=== PATIENT | male | born 1965 | race Caucasian/White ===

== ENCOUNTER 2016-11-23 19:28 | Emergency (ER) | payer BC, OTHER ==
[2016-11-23] MEDS ORDERED: methylPREDNISolone Sodium Succinate 125 MG/2 ML SDV IVPUSH ONE (19:37)
--- NOTE | 2016-11-23 19:41 | EDM.PDOC ---
ED HPI Allergic Reaction - General Chief Complaint: Allergic Reaction Stated Complaint: TOUNGE/THROAT SWELLING Time Seen by Provider: 11/23/16 19:38 Source of Information: Reports: Patient, Family () History Limitations: Reports: No limitations - History of Present Illness INITIAL COMMENTS - FREE TEXT/NARRATIVE: 51 yo white male c/o tongue swelling X 2-3 hours and does not recall what caused it. No New Food. Pt. is smoker Symptom Onset Date: 11/23/16 Symptom Onset Time: 17:00 Timing/Duration: Reports: Hour(s): Location, Skin: Reports: other (tongue) Associated features: Reports: swelling (tongue) Known identified source: no Place of Occurrence: home Sick Contact: no Associated Symptoms: Reports: no other symptoms Similar symptoms previously: no - Related Data Allergies/ADRs: Allergies Allergy/AdvReac Type Severity Reaction Status Date / Time No Known Allergies Allergy Verified 11/23/16 19:44 Home Meds: Home Meds Albuterol [Ventolin HFA] 2 puff INH BID 09/01/13 [History] Simvastatin [Zocor] 20 mg PO DAILY 09/01/13 [History] Aspirin [Halfprin] 81 mg PO BRK 11/23/16 [History] Lisinopril 10 mg PO DAILY 11/23/16 [History] Social & Family History - Tobacco Use Years of Tobacco use: 35 Second Hand Smoke Exposure: Yes - Alcohol Use Days Per Week of Alcohol Use: 7 Number of Drinks Per Day: 5 Total Drinks Per Week: 35 - Recreational Drug Use Recreational Drug Use: No ED ROS ALLERGIC REACTION - Review of Systems Review Of Systems: See Below Constitutional: Reports: no symptoms HEENT: Reports: Other (tongue swelling) Respiratory: Reports: no symptoms Cardiovascular: Reports: No symptoms Endocrine: Reports: no symptoms GI/Abdominal: Reports: No symptoms Musculoskeletal: Reports: no symptoms Skin: Reports: no symptoms Neurological: Reports: no symptoms Psychiatric: Reports: No symptoms Hematologic/Lymphatic: Reports: no symptoms Immunologic: Reports: no symptoms ED EXAM GENERAL NO PERIP PULSE - Physical Exam Exam: See Below Exam Limited By: No limitations General Appearance: alert, WD/WN, no apparent distress Eye Exam: bilateral eye: PERRL Ears: normal external exam Nose: normal inspection Throat/Mouth: Normal inspection, Other (tongue swelling ) Neck: normal inspection Respiratory/Chest: no respiratory distress, rhonchi Cardiovascular: normal peripheral pulses, regular rate, rhythm GI/Abdominal: normal bowel sounds Back Exam: normal inspection Extremities: normal inspection, normal range of motion Neurological: alert, oriented, CN II-XII intact Psychiatric: normal affect Skin Exam: Warm, No rash Lymphatic: no adenopathy Course - Vital Signs Last Recorded V/S: Last Vital Signs Temp 37.4 C 11/23/16 20:07 Pulse 86 11/23/16 20:07 Resp 16 11/23/16 20:07 BP 143/75 H 11/23/16 20:07 Pulse Ox 92 L 11/23/16 20:07 - Orders/Labs/Meds Orders: Active Orders 24 hr Category Date Time Status Sodium Chloride 0.9% [Normal Saline] 1,000 ml Med 11/23/16 19:45 Active IV ASDIRECTED Medication Orders Sodium Chloride (Normal Saline) 1,000 mls @ 125 mls/hr IV ASDIRECTED VANESSA Last Admin: 11/23/16 19:42 Dose: 125 mls/hr Meds: Medications Generic Name Dose Route Start Last Admin Trade Name Freq PRN Reason Stop Dose Admin Sodium Chloride 1,000 mls @ 125 mls/hr 11/23/16 19:45 11/23/16 19:42 Normal Saline IV 125 mls/hr ASDIRECTED VANESSA Administration Discontinued Medications Generic Name Dose Route Start Last Admin Trade Name Freq PRN Reason Stop Dose Admin Diphenhydramine HCl 25 mg 11/23/16 19:44 11/23/16 19:47 Benadryl IVPUSH 11/23/16 19:45 25 mg ONETIME ONE Administration Methylprednisolone Sodium Succinate 125 mg 11/23/16 19:37 11/23/16 19:43 Solu-Medrol IVPUSH 11/23/16 19:38 125 mg ONETIME ONE Administration Departure - Departure Time of Disposition: 21:46 Disposition: Home, Self-Care 01 Condition: good Clinical Impression: Allergic reaction Qualifiers: Encounter type: initial encounter Qualified Code(s): T78.40XA - Allergy, unspecified, initial encounter Forms: ED Department Discharge Additional Instructions: Rest Suck on ice chips Use own the Benadryl 25mg QID F/U w/ PCP for Allergy test - My Orders Last 24 Hours: My Active Orders 11/23/16 19:45 Sodium Chloride 0.9% [Normal Saline] 1,000 ml IV ASDIRECTED - Assessment/Plan Last 24 Hours: My Active Orders 11/23/16 19:45 Sodium Chloride 0.9% [Normal Saline] 1,000 ml IV ASDIRECTED
[2016-11-23] MEDS ORDERED: diphenhydrAMINE 50 MG/ML SDV IVPUSH ONE (19:44)
[2016-11-23] MEDS ORDERED: Sodium Chloride 0.9% 1,000 ML IV SCH (19:45)
[2016-11-23 21:48] VITALS: BP 133/67
== END 2016-11-23 22:10 | disposition home or self-care (01) ==
LOC: DL.ED 19:28
DX: T78.40XA Allergy, unspecified, initial encounter (principal); R22.0 Localized swelling, mass and lump, head; Z79.82 Long term (current) use of aspirin
CPT/HCPCS: 96361; 96374; 96375; 99283; J1200; J2930; J7030; 99284

== ENCOUNTER 2017-04-25 16:00 | Emergency (ER) | payer MEDICAID, OTHER ==
[2017-04-25] MEDS ORDERED: Sodium Chloride 0.9% 1,000 ML IV ONE (16:25)
[2017-04-25] MEDS ORDERED: methylPREDNISolone Sodium Succinate 125 MG/2 ML SDV IVPUSH ONE ×2 (16:26→20:07)
--- NOTE | 2017-04-25 16:33 | EDM.PDOC ---
<Gold Galan - Last Filed: 04/25/17 18:48> ED HPI GENERAL MEDICAL PROBLEM - General Chief Complaint: Allergic Reaction Stated Complaint: BY AMBULANCE Time Seen by Provider: 04/25/17 16:27 Source of Information: Reports: Patient, EMS, Family () - History of Present Illness INITIAL COMMENTS - FREE TEXT/NARRATIVE: 52 yo white male brought by ambulance for possible allergic reaction from " Wine Cooler Ice and .[place] Ice" beer. Pt. had facial swelling and lip swelling yesterday and resolved with benadryl. Today patient drank [place] [employer] and developed swelling to his uvula. No SOB and No Skin Rash and No itching. Onset Date: 04/24/17 Onset Time: 13:00 Duration: Day(s): Location: Reports: Face, Other (throat) Severity: Moderate Improves with: Reports: Medication (Benadryl) Context: Reports: Other (possible allergy to Wine Cooler and Beer with the ICE brand) Associated Symptoms: Reports: No Other Symptoms - Related Data Allergies Allergy/AdvReac Type Severity Reaction Status Date / Time No Known Allergies Allergy Verified 11/23/16 19:44 Home Meds: Home Meds Albuterol [Ventolin HFA] 2 puff INH BID 09/01/13 [History] Simvastatin [Zocor] 20 mg PO DAILY 09/01/13 [History] Aspirin [Halfprin] 81 mg PO BRK 11/23/16 [History] Lisinopril 10 mg PO DAILY 11/23/16 [History] Tiotropium [Spiriva HandiHaler] 1 tab INH DAILY 04/25/17 [History] Past Medical History HEENT History: Reports: Sinusitis Cardiovascular History: Reports: Aneurysm, Blood Clots/VTE/DVT, CAD, High Cholesterol, Hypertension, [place], Stents, Other (See Below) Other Cardiovascular History: aneurysm repair. 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 Respiratory History: Reports: Asthma, Bronchitis, Recurrent, COPD, Intubation, Previous Musculoskeletal History: Reports: Fracture Other Musculoskeletal History: arm Neurological History: Reports: Brain Injury, Concussion - Past Surgical History Cardiovascular Surgical History: Reports: Aneurysm, Coronary Artery Stent, Other (See Below) Social & Family History - Family History Family Medical History: Noncontributory - Tobacco Use Smoking Status *Q: Current Every Day Smoker Years of Tobacco use: 35 Packs/Tins Daily: 1 Second Hand Smoke Exposure: Yes - Caffeine Use Caffeine Use: Reports: Coffee Other Caffeine Use: 2 cups coffee / day - Alcohol Use Days Per Week of Alcohol Use: 7 Number of Drinks Per Day: 5 Total Drinks Per Week: 35 - Recreational Drug Use Recreational Drug Use: No ED ROS ALLERGIC REACTION - Review of Systems Review Of Systems: See Below Constitutional: Reports: No Symptoms HEENT: Reports: Throat Swelling Respiratory: Reports: No Symptoms Cardiovascular: Reports: No Symptoms Endocrine: Reports: No Symptoms GI/Abdominal: Reports: No Symptoms : Reports: No Symptoms Musculoskeletal: Reports: No Symptoms Skin: Reports: No Symptoms Neurological: Reports: No Symptoms Psychiatric: Reports: No Symptoms Hematologic/Lymphatic: Reports: No Symptoms Immunologic: Reports: No Symptoms ED EXAM GENERAL NO PERIP PULSE - Physical Exam Exam: See Below Exam Limited By: Other (Patient is intoxicated) General Appearance: Alert, No Apparent Distress Eye Exam: Bilateral Eye: PERRL Ears: Normal External Exam Nose: Normal Inspection Throat/Mouth: Normal Inspection, No Airway Compromise, Other (edematous uvula) Neck: Normal Inspection, Supple Respiratory/Chest: No Respiratory Distress, Lungs Clear Cardiovascular: Normal Peripheral Pulses, Regular Rate, Rhythm GI/Abdominal: Normal Bowel Sounds, Soft Back Exam: Normal Inspection Extremities: Normal Inspection, Normal Range of Motion Neurological: Alert, Oriented Psychiatric: Normal Affect Skin Exam: Warm Lymphatic: No Adenopathy Course - Vital Signs Last Recorded V/S: Last Vital Signs Temp 36.9 C 04/25/17 20:03 Pulse 104 H 04/25/17 17:04 Resp 22 H 04/25/17 20:03 BP 136/89 04/25/17 20:03 Pulse Ox 100 04/25/17 20:03 - Orders/Labs/Meds Orders: Active Orders 24 hr Category Date Time Status RT Aerosol Therapy [RC] ASDIRECTED Care 04/25/17 19:53 Active Cervical Spine wo Cont [CT] Urgent Exams 04/25/17 21:11 Ordered Chest 2V [CR] Urgent Exams 04/25/17 20:06 Taken Labs: Laboratory Tests 04/25/17 04/25/17 04/25/17 Range/Units 16:34 16:36 16:36 WBC 12.0 H (5.0-10.0) 10^3/uL RBC 4.85 (4.6-6.2) 10^6/uL Hgb 16.1 (14.0-18.0) g/dL Hct 44.9 (40.0-54.0) % MCV 92.6 (80-100) fL MCH 33.2 (27.0-34.0) pg MCHC 35.9 H (33.0-35.0) g/dL Plt Count 154 (150-450) 10^3/uL Neut % (Auto) 67.1 (42.2-75.2) % Lymph % (Auto) 18.7 L (20.5-50.1) % [place] % (Auto) 12.6 H (2-8) % Eos % (Auto) 1.1 (1.0-3.0) % Baso % (Auto) 0.5 (0.0-1.0) % Sodium 134 L (135-145) mmol/L Potassium 4.7 (3.6-5.0) mmol/L Chloride 94 L (101-111) mmol/L Carbon Dioxide 19.0 L (21.0-31.0) mmol/L Anion Gap 25.7 BUN 10 (7-18) mg/dL Creatinine 0.7 (0.6-1.3) mg/dL Est Cr Clr Drug Dosing TNP Estimated GFR (MDRD) > 60 BUN/Creatinine Ratio 14.28 Glucose 72 L (74-105) mg/dL Calcium 9.5 (8.4-10.2) mg/dl Total Bilirubin 0.6 (0.2-1.0) mg/dL AST 40 (10-42) IU/L ALT 25 (10-60) IU/L Alkaline Phosphatase 92 (42-121) IU/L Total Protein 8.3 H (6.7-8.2) g/dl Albumin 4.4 (3.2-5.5) g/dl Globulin 3.9 Albumin/Globulin Ratio 1.13 Urine Color Yellow (YELLOW) Urine Appearance Clear (CLEAR) Urine pH 5.5 (5.0-9.0) Ur Specific [place] 1.015 (1.005-1.030) Urine Protein Negative (NEGATIVE) Urine Glucose (UA) Negative (NEGATIVE) Urine Ketones 15 H (NEGATIVE) Urine Occult Blood Negative (NEGATIVE) Urine Nitrite Negative (NEGATIVE) Urine Bilirubin Negative (NEGATIVE) Urine Urobilinogen 0.2 (0.2-1.0) mg/dL Ur Leukocyte Esterase Negative (NEGATIVE) Urine RBC 0-5 /HPF Urine WBC 0-5 (0-5/HPF) /HPF Ur Epithelial Cells Few /HPF Amorphous Sediment Few (0/HPF) /HPF Urine Bacteria Moderate H (0-FEW/HPF) /HPF Hyaline Casts Few H /LPF Urine Mucus Few H /LPF Ethyl Alcohol mg/dL 04/25/17 Range/Units 16:36 WBC (5.0-10.0) 10^3/uL RBC (4.6-6.2) 10^6/uL Hgb (14.0-18.0) g/dL Hct (40.0-54.0) % MCV (80-100) fL MCH (27.0-34.0) pg MCHC (33.0-35.0) g/dL Plt Count (150-450) 10^3/uL Neut % (Auto) (42.2-75.2) % Lymph % (Auto) (20.5-50.1) % [place] % (Auto) (2-8) % Eos % (Auto) (1.0-3.0) % Baso % (Auto) (0.0-1.0) % Sodium (135-145) mmol/L Potassium (3.6-5.0) mmol/L Chloride (101-111) mmol/L Carbon Dioxide (21.0-31.0) mmol/L Anion Gap BUN (7-18) mg/dL Creatinine (0.6-1.3) mg/dL Est Cr Clr Drug Dosing Estimated GFR (MDRD) BUN/Creatinine Ratio Glucose (74-105) mg/dL Calcium (8.4-10.2) mg/dl Total Bilirubin (0.2-1.0) mg/dL AST (10-42) IU/L ALT (10-60) IU/L Alkaline Phosphatase (42-121) IU/L Total Protein (6.7-8.2) g/dl Albumin (3.2-5.5) g/dl Globulin Albumin/Globulin Ratio Urine Color (YELLOW) Urine Appearance (CLEAR) Urine pH (5.0-9.0) Ur Specific [place] (1.005-1.030) Urine Protein (NEGATIVE) Urine Glucose (UA) (NEGATIVE) Urine Ketones (NEGATIVE) Urine Occult Blood (NEGATIVE) Urine Nitrite (NEGATIVE) Urine Bilirubin (NEGATIVE) Urine Urobilinogen (0.2-1.0) mg/dL Ur Leukocyte Esterase (NEGATIVE) Urine RBC /HPF Urine WBC (0-5/HPF) /HPF Ur Epithelial Cells /HPF Amorphous Sediment (0/HPF) /HPF Urine Bacteria (0-FEW/HPF) /HPF Hyaline Casts /LPF Urine Mucus /LPF Ethyl Alcohol 280 mg/dL Meds: Medications Discontinued Medications Generic Name Dose Route Start Last Admin Trade Name Freq PRN Reason Stop Dose Admin Diphenhydramine HCl 50 mg 04/25/17 18:28 04/25/17 18:42 Benadryl PO 04/25/17 18:29 50 mg ONETIME ONE Administration Diphenhydramine HCl 25 mg 04/25/17 20:07 04/25/17 20:18 Benadryl IVPUSH 04/25/17 20:08 25 mg ONETIME ONE Administration Sodium Chloride 1,000 mls @ 999 mls/hr 04/25/17 16:25 04/25/17 16:52 Normal Saline IV 04/25/17 17:25 999 mls/hr .BOLUS ONE Administration Methylprednisolone Sodium Succinate 125 mg 04/25/17 16:26 04/25/17 16:52 Solu-Medrol IVPUSH 04/25/17 16:27 125 mg ONETIME ONE Administration Methylprednisolone Sodium Succinate 125 mg 04/25/17 20:07 04/25/17 20:19 Solu-Medrol IVPUSH 04/25/17 20:08 125 mg ONETIME ONE Administration Racepinephrine 0.5 ml 04/25/17 19:53 04/25/17 19:59 S-2 2.25% NEB 04/25/17 19:54 0.5 ml ONETIME ONE Administration Departure - Departure Disposition: DC/Tfer to Acute Hospital 02 Clinical Impression: Dyspnea Qualifiers: Dyspnea type: other forms of dyspnea Qualified Code(s): R06.09 - Other forms of dyspnea - Discharge Information Forms: Interfacility Transfer EMTALA - My Orders Last 24 Hours: My Active Orders 04/25/17 19:53 RT Aerosol Therapy [RC] ASDIRECTED 04/25/17 20:06 Chest 2V [CR] Urgent 04/25/17 21:11 Cervical Spine wo Cont [CT] Urgent - Assessment/Plan Last 24 Hours: My Active Orders 04/25/17 19:53 RT Aerosol Therapy [RC] ASDIRECTED 04/25/17 20:06 Chest 2V [CR] Urgent 04/25/17 21:11 Cervical Spine wo Cont [CT] Urgent <Brian Jackson - Last Filed: 04/25/17 21:19> Course - Re-Assessments/Exams Free Text/Narrative Re-Assessment/Exam: 04/25/17 19:11 re-exam; s/p IV + Rx = minimally better 04/25/17 21:12 re-exam Pt states not better. case discussed with Dr Odell @ who kindly accepted pt. Departure - Departure Time of Disposition: 21:16 Condition: Fair
[2017-04-25 17:02] LABS: CHLORIDE,CL 94 mmol/L (101-111); SODIUM,NA 134 mmol/L (135-145)
[2017-04-25] MEDS ORDERED: diphenhydrAMINE 50 MG Cap PO ONE (18:28)
[2017-04-25] MEDS ORDERED: Racepinephrine 2.25% 0.5 ML Neb Soln NEB ONE (19:53)
[2017-04-25] MEDS ORDERED: diphenhydrAMINE 50 MG/ML SDV IVPUSH ONE (20:07)
[2017-04-25 21:26] VITALS: BP 129/82
== END 2017-04-25 21:42 ==
LOC: DL.ED 16:00
DX: R06.09 Other forms of dyspnea (principal); J45.909 Unspecified asthma, uncomplicated; J44.9 Chronic obstructive pulmonary disease, unspecified; F17.210 Nicotine dependence, cigarettes, uncomplicated; Z95.1 Presence of aortocoronary bypass graft; Z79.899 Other long term (current) drug therapy; Z79.82 Long term (current) use of aspirin
CPT/HCPCS: 36415; 70360; 71020; 80053; 81001; 85025; 96365; 96375; 96376; 99285; G0480; J1200; J2930; J7030; Q0163

== ENCOUNTER 2020-03-26 19:08 | Emergency (ER) | payer OTHER, MEDICAID ==
[2020-03-26 19:22] VITALS: BP 134/75; PULSE 93
--- NOTE | 2020-03-26 19:38 | CR ---
PROCEDURE INFORMATION: Exam: XR Chest, 2 Views Exam date and time: 03/26/2020 7:23 PM Age: 55 years old Clinical indication: Shortness of breath; Additional info: Short of breath TECHNIQUE: Imaging protocol: XR of the chest Views: 2 views. COMPARISON: CR Chest 2V 04/25/2017 8:09 PM FINDINGS: Lungs: Unremarkable. No consolidation. Pleural space: Unremarkable. No pleural effusion. No pneumothorax. Heart/Mediastinum: Unremarkable. No cardiomegaly. Previous descending thoracic aorta stent graft. Bones/joints: Unremarkable. IMPRESSION: 1. No acute lung infiltrates. 2. No pleural effusions. 3. No pneumothorax. 4. Descending thoracic aortic stent graft.
--- NOTE | 2020-03-26 19:43 | EDM.PDOC ---
ED HPI GENERAL MEDICAL PROBLEM - General Chief Complaint: Respiratory Problem Stated Complaint: FATIQUE Time Seen by Provider: 03/26/20 19:25 Source of Information: Reports: Patient History Limitations: Reports: No Limitations - History of Present Illness INITIAL COMMENTS - FREE TEXT/NARRATIVE: This 55 yo male patient reports to the ED with his due to fatigue. The patient reports he has been feeling well all day, but started to feel fatigued tonight after eating supper. The patient reports he has a history of a heart attack (when he was 41) and multiple stents. The patient also has a history of COPD, but continues to smoke. The patient denies any history of a cough, shortness of breath, nausea, vomiting or diarrhea. Onset: Today Duration: Hour(s):, Constant Location: Reports: Generalized Quality: Reports: Other Severity: Moderate Improves with: Reports: None Worsens with: Reports: None Context: Reports: Other Associated Symptoms: Reports: Shortness of Breath, Weakness (generalized fatigue) - Related Data Allergies Allergy/AdvReac Type Severity Reaction Status Date / Time ARLYN Inhibitors Allergy Airway Verified 03/26/20 19:14 Tightness morphine Allergy Hallucinati Verified 03/26/20 19:14 ons Home Meds: Home Meds Albuterol [Ventolin HFA] 2 puff INH BID 09/01/13 [History] Simvastatin [Zocor] 20 mg PO DAILY 09/01/13 [History] Aspirin [Halfprin] 81 mg PO BRK 11/23/16 [History] Tiotropium [Spiriva HandiHaler] 1 tab INH DAILY 04/25/17 [History] Gabapentin [Neurontin] 600 mg TID 04/22/19 [History] NIFEdipine [Nifedipine ER] 30 mg DAILY 04/22/19 [History] Clopidogrel [Plavix] 75 mg PO DAILY 03/26/20 [History] Past Medical History HEENT History: Reports: Sinusitis Other HEENT History: very bad teeth Cardiovascular History: Reports: Aneurysm, Blood Clots/VTE/DVT, CAD, High Cholesterol, Hypertension, [place], Stents, Other (See Below) Other Cardiovascular History: aneurysm repair. 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 Respiratory History: Reports: Asthma, Bronchitis, Recurrent, COPD, Intubation, Previous Musculoskeletal History: Reports: Fracture Other Musculoskeletal History: arm Neurological History: Reports: Brain Injury, Concussion Psychiatric History: Reports: Addiction - Past Surgical History Cardiovascular Surgical History: Reports: Aneurysm, Coronary Artery Stent, Other (See Below) GI Surgical History: Reports: Other (See Below) Other GI Surgeries/Procedures: exploratory laparotomy Social & Family History - Family History Family Medical History: Noncontributory - Tobacco Use Smoking Status *Q: Current Every Day Smoker Years of Tobacco use: 40 Packs/Tins Daily: 1 Second Hand Smoke Exposure: Yes - Caffeine Use Caffeine Use: Reports: Coffee Other Caffeine Use: 2 cups coffee / day - Recreational Drug Use Recreational Drug Use: No ED ROS GENERAL - Review of Systems Review Of Systems: Comprehensive ROS is negative, except as noted in HPI. ED EXAM, GENERAL - Physical Exam Exam: See Below Exam Limited By: No Limitations General Appearance: Alert, WD/WN, Moderate Distress Eye Exam: Bilateral Eye: EOMI, Normal Inspection, PERRL Ears: Normal External Exam, Normal Canal, Hearing Grossly Normal, Normal TMs Nose: Normal Inspection, Normal Mucosa, No Blood Throat/Mouth: Normal Inspection, Normal Lips, Normal Teeth, Normal Gums, Normal Oropharynx, Normal Voice, No Airway Compromise Head: Atraumatic, Normocephalic Neck: Normal Inspection, Supple, Non-Tender, Full Range of Motion Respiratory/Chest: No Respiratory Distress, No Accessory Muscle Use, Chest Non- Tender, Decreased Breath Sounds Cardiovascular: Normal Peripheral Pulses, Regular Rate, Rhythm, No Edema, No Gallop, No JVD, No Murmur, No Rub GI/Abdominal: Normal Bowel Sounds, Soft, Non-Tender, No Organomegaly, No Distention, No Abnormal Bruit, No Mass (Male) Exam: Deferred Rectal (Males) Exam: Deferred Back Exam: Normal Inspection, Full Range of Motion, NT Extremities: Normal Inspection, Normal Range of Motion, Non-Tender, Normal Capillary Refill, No Pedal Edema Neurological: Alert, Oriented, CN II-XII Intact, Normal Cognition, Normal Gait, Normal Reflexes, No Motor/Sensory Deficits Psychiatric: Normal Affect, Normal Mood Skin Exam: Other (multiple bruises to upper extremities) Lymphatic: No Adenopathy Course - Vital Signs Last Recorded V/S: Last Vital Signs Temp 36.9 C 03/26/20 19:10 Pulse 93 03/26/20 19:21 Resp 18 03/26/20 19:21 BP 134/75 03/26/20 19:21 Pulse Ox 98 06/29/20 19:21 - Orders/Labs/Meds Orders: Active Orders 24 hr Category Date Time Status EKG Documentation Completion [RC] STAT Care 03/26/20 19:19 Ordered UA RFX KRIS AND CULT IF INDIC [URIN] Urgent Lab 03/26/20 19:19 Ordered cefTRIAXone [Rocephin] 1 gm Med 03/26/20 20:11 Ordered Sodium Chloride 0.9% [Normal Saline] 50 ml IV ONETIME Medication Orders Ceftriaxone Sodium 1 gm/ (Sodium Chloride) 50 mls @ 100 mls/hr IV ONETIME ONE Stop: 03/26/20 20:40 Labs: Laboratory Tests 03/26/20 03/26/20 Range/Units 19:17 19:17 WBC 4.2 L (5.0-10.0) 10^3/uL RBC 3.83 L (4.6-6.2) 10^6/uL Hgb 12.0 L D (14.0-18.0) g/dL Hct 35.9 L (40.0-54.0) % MCV 93.7 (80-100) fL MCH 31.3 (27.0-34.0) pg MCHC 33.4 (33.0-35.0) g/dL Plt Count 177 (150-450) 10^3/uL Neut % (Auto) 56.4 (42.2-75.2) % Lymph % (Auto) 29.8 (20.5-50.1) % [place] % (Auto) 9.5 H (2-8) % Eos % (Auto) 2.6 (1.0-3.0) % Baso % (Auto) 1.7 H (0.0-1.0) % Sodium 137 (136-145) mmol/L Potassium 3.6 (3.5-5.1) mmol/L Chloride 100 (98-107) mmol/L Carbon Dioxide 26 (21-32) mmol/L Anion Gap 14.6 H (7-13) mEq/L BUN 8 (7-18) mg/dL Creatinine 0.88 (0.70-1.30) mg/dL Est Cr Clr Drug Dosing 89.35 mL/min Estimated GFR (MDRD) > 60 BUN/Creatinine Ratio 9.1 (No establ ref range) Glucose 147 H (74-99) mg/dL Calcium 8.7 (8.5-10.1) mg/dL Total Bilirubin 0.3 (0.2-1.0) mg/dL AST 33 (15-37) U/L ALT 23 (16-63) U/L Alkaline Phosphatase 80 (46-116) U/L Troponin I < 0.017 (0.000-0.056) ng/mL Total Protein 7.6 (6.4-8.2) g/dL Albumin 3.5 (3.4-5.0) g/dL Globulin 4.1 Albumin/Globulin Ratio 0.9 Meds: Medications Generic Name Dose Route Start Last Admin Trade Name Freq PRN Reason Stop Dose Admin Ceftriaxone Sodium 1 gm/ 50 mls @ 100 mls/hr 03/26/20 20:11 Sodium Chloride IV 03/26/20 20:40 ONETIME ONE Discontinued Medications Generic Name Dose Route Start Last Admin Trade Name Freq PRN Reason Stop Dose Admin Ceftriaxone Sodium 1 gm 03/26/20 20:10 Rocephin IM 03/26/20 20:11 ONETIME ONE Methylprednisolone Sodium Succinate 40 mg 03/26/20 20:09 Solu-Medrol IVPUSH 03/26/20 20:10 ONETIME ONE Departure - Departure Time of Disposition: 20:15 Disposition: Home, Self-Care 01 Condition: Fair Clinical Impression: COPD with exacerbation - Discharge Information *PRESCRIPTION DRUG MONITORING PROGRAM REVIEWED*: Not Applicable *COPY OF PRESCRIPTION DRUG MONITORING REPORT IN PATIENT ENDER: Not Applicable Instructions: Chronic Obstructive Pulmonary Disease Exacerbation, [id number] Forms: ED Department Discharge Care Plan Goals: The patient was advised of the examination, lab, x-ray and EKG results during the visit. The patient was given in IV dose of SoluMedrol and IV Rocephin while in the ED. The patient was discharged with scripts for 1) Azithromycin (250 mg) #6 to take 2 by mouth on day 1 and 1 by mouth on days 2-5 and Prednisone (20 mg) #10 to take 2 by mouth daily. If the patient has any additional symptoms or concerns, the patient should either return to the emergency department or visit his primary care facility. Sepsis Event Note (ED) - Evaluation Sepsis Screening Result: No Definite Risk - Focused Exam Vital Signs: Vital Signs Temp Pulse Resp BP Pulse Ox 03/26/20 19:21 93 18 134/75 98 03/26/20 19:10 36.9 C 119 H 18 136/72 87 L - My Orders Last 24 Hours: My Active Orders 03/26/20 19:19 EKG Documentation Completion [RC] STAT UA RFX KRIS AND CULT IF INDIC [URIN] Urgent 03/26/20 20:11 cefTRIAXone [Rocephin] 1 gm Sodium Chloride 0.9% [Normal Saline] 50 ml IV ONETIME - Assessment/Plan Last 24 Hours: My Active Orders 03/26/20 19:19 EKG Documentation Completion [RC] STAT UA RFX KRIS AND CULT IF INDIC [URIN] Urgent 03/26/20 20:11 cefTRIAXone [Rocephin] 1 gm Sodium Chloride 0.9% [Normal Saline] 50 ml IV ONETIME
[2020-03-26 19:45] LABS: ANION GAP 14.6 mEq/L (7-13); CHLORIDE,CL 100 mmol/L (98-107); SODIUM,NA 137 mmol/L (136-145)
[2020-03-26] MEDS ORDERED: methylPREDNISolone Sodium Succinate 40 MG/1 ML SDV IVPUSH ONE (20:09)
[2020-03-26] MEDS ORDERED: cefTRIAXone 1 GM Vial IM ONE (20:10)
[2020-03-26] MEDS ORDERED: cefTRIAXone 1 GM in Sodium Chloride 0.9% 50 ML IV ONE (20:11)
== END 2020-03-26 21:02 | disposition home or self-care (01) ==
LOC: DL.ED 19:08
DX: J44.1 Chronic obstructive pulmonary disease with (acute) exacerbation (principal); I25.10 Atherosclerotic heart disease of native coronary artery without angina pectoris; E78.00 Pure hypercholesterolemia, unspecified; I10 Essential (primary) hypertension; I25.2 Old myocardial infarction; J44.9 Chronic obstructive pulmonary disease, unspecified; F17.210 Nicotine dependence, cigarettes, uncomplicated; Z88.8 Allergy status to other drugs, medicaments and biological substances; Z88.5 Allergy status to narcotic agent; Z79.82 Long term (current) use of aspirin; Z79.02 Long term (current) use of antithrombotics/antiplatelets; Z95.5 Presence of coronary angioplasty implant and graft; Z79.899 Other long term (current) drug therapy
CPT/HCPCS: 36415; 71046; 80053; 84484; 85025; 93005; 96365; 96375; 99284; 99285; J0696; J2920; J7050

== ENCOUNTER 2022-03-26 21:56 | Emergency (ER) | payer BC ==
[2022-03-26 22:00] VITALS: PULSE 106
== END 2022-03-26 22:05 | disposition left against medical advice (07) ==
LOC: DL.ED 21:56
DX: M79.672 Pain in left foot (principal); I25.10 Atherosclerotic heart disease of native coronary artery without angina pectoris; E78.00 Pure hypercholesterolemia, unspecified; I10 Essential (primary) hypertension; J44.9 Chronic obstructive pulmonary disease, unspecified; Z88.5 Allergy status to narcotic agent; Z88.8 Allergy status to other drugs, medicaments and biological substances; Z79.82 Long term (current) use of aspirin; Z79.899 Other long term (current) drug therapy; Z79.02 Long term (current) use of antithrombotics/antiplatelets
CPT/HCPCS: 99282; 99283

== ENCOUNTER 2023-01-29 22:19 | Emergency (ER) | payer OTHER ==
[2023-01-29] MEDS ORDERED: Sodium Chloride 0.9% 10 ML Syringe FLUSH PRN (22:51)
[2023-01-29 22:58] LABS: BASOPHILS PERCENT AUTO 0.7 % (0.0-1.0); EOSINOPHILS PERCENT AUTO 1.9 % (1.0-3.0); LYMPHOCYTES PERCENT AUTO 16.4 % (20.5-50.1); MEAN CORPUSCULAR HEMOGLOBIN 24.5 pg (27.0-34.0); MEAN CORPUSCULAR HGB CONC 30.4 g/dL (33.0-35.0); MEAN CORPUSCULAR VOLUME 80.5 fL (80-100); PLATELET COUNT,PLT 256 10^3/uL (150-450); RED BLOOD CELL COUNT 2.41 10^6/uL (4.6-6.2); WHITE BLOOD CELL COUNT,WBC 7.5 10^3/uL (5.0-10.0)
[2023-01-29 23:02] LABS: HEMATOCRIT 19.4 % (40.0-54.0); HEMOGLOBIN 5.9 g/dL (14.0-18.0)
[2023-01-29 23:19] LABS: B-TYPE NATRIURETIC PEPTIDE,BNP 95 pg/ml (0-100)
[2023-01-29 23:20] LABS: INR 0.8 (0.9-1.2); PROTHROMBIN TIME 8.8 SEC (9.0-12.0); PTT,PARTIAL THROMBOPLSTIN TIME 23.2 SEC (22.0-34.0)
[2023-01-29 23:23] LABS: A/G RATIO 0.9; ALANINE AMINOTRANSFERASE,ALT 19 U/L (16-63); ALBUMIN 3.5 g/dL (3.4-5.0); ALKALINE PHOSPHATASE 103 U/L (46-116); ANION GAP 15.4 mEq/L (7-13); ASPARTATE AMNIOTRANSFERASE,AST 16 U/L (15-37); BILIRUBIN TOTAL 0.2 mg/dL (0.2-1.0); BLOOD UREA NITROGEN,BUN 8 mg/dL (7-18); BUN/CREATININE RATIO 10.4 (No establ ref range); C-REACTIVE PROTEIN 0.8 mg/dL (0.0-0.9); CALCIUM 8.4 mg/dL (8.5-10.1); CARBON DIOXIDE,CO2 24 mmol/L (21-32); CHLORIDE,CL 95 mmol/L (98-107); CREATININE 0.77 mg/dL (0.70-1.30); ETHANOL BLOOD MEDICAL 268 mg/dL (0); GLUCOSE RANDOM 98 mg/dL (70-99); POTASSIUM,K 3.4 mmol/L (3.5-5.1); PROTEIN TOTAL,TP 7.5 g/dL (6.4-8.2); SODIUM,NA 131 mmol/L (136-145)
[2023-01-29 23:24] LABS: ESTIMATED GFR 105 mL/min (>=60)
[2023-01-29 23:25] LABS: LACTIC ACID 3.3 mmol/L (0.4-2.0)
[2023-01-29] MEDS ORDERED: Sodium Chloride 0.9% 1,000 ML IV ONE (23:36)
[2023-01-29] MEDS ORDERED: Furosemide 20 MG/2 ML VIAL IVPUSH ONE (23:56)
[2023-01-30] MEDS ORDERED: Pantoprazole 40 MG Vial IVPUSH ONE (00:07)
[2023-01-30 04:40] LABS: HEMATOCRIT 23.3 % (40.0-54.0); HEMOGLOBIN 7.2 g/dL (14.0-18.0)
[2023-01-30 04:45] VITALS: BP 110/65; PULSE 89
== END 2023-01-30 06:25 | disposition home or self-care (01) ==
LOC: DL.ED 22:19
DX: D64.9 Anemia, unspecified (principal); I25.10 Atherosclerotic heart disease of native coronary artery without angina pectoris; E78.00 Pure hypercholesterolemia, unspecified; I10 Essential (primary) hypertension; I25.2 Old myocardial infarction; J44.9 Chronic obstructive pulmonary disease, unspecified; Z79.899 Other long term (current) drug therapy; Z79.82 Long term (current) use of aspirin; Z79.02 Long term (current) use of antithrombotics/antiplatelets; Z88.8 Allergy status to other drugs, medicaments and biological substances; Z88.5 Allergy status to narcotic agent; Z91.048 Other nonmedicinal substance allergy status
CPT/HCPCS: 36415; 36430; 71045; 80053; 80307; 82272; 83605; 83735; 83880; 84145; 84484; 85014; 85018; 85025; 85610; 85730; 86140; 86850; 86900; 86901; 86920; 86922; 93005; 93010; 96361; 96374; 96375; 99283; 99284-25; C9113; J1940; J3490; J7030; P9016

== ENCOUNTER 2023-04-29 09:52 | Emergency (ER) | payer OTHER ==
[2023-04-29] MEDS ORDERED: Sodium Chloride 0.9% 1,000 ML IV ONE (09:55)
[2023-04-29] MEDS ORDERED: Ondansetron 4 MG/2 ML SDV IV ONE (09:55)
[2023-04-29] MEDS ORDERED: Pantoprazole 40 MG Vial IVPUSH ONE (09:56)
[2023-04-29] MEDS ORDERED: Sodium Chloride 0.9% 10 ML Syringe FLUSH PRN ×2 (09:56→09:57)
[2023-04-29] MEDS ORDERED: Octreotide 100 MCG/ML SDV IVPUSH ONE (09:56)
[2023-04-29 09:59] VITALS: BP 123/81; PULSE 113
[2023-04-29] MEDS ORDERED: Pantoprazole 40 MG in Sodium Chloride 0.9% 100 ML IV SCH (10:00)
[2023-04-29] MEDS ORDERED: Octreotide 100 MCG in Sodium Chloride 0.9% 99 ML IV SCH (10:00)
[2023-04-29 10:12] LABS: BASOPHILS PERCENT AUTO 0.5 % (0.0-1.0); EOSINOPHILS PERCENT AUTO 0.9 % (1.0-3.0); HEMATOCRIT 33.8 % (40.0-54.0); HEMOGLOBIN 11.3 g/dL (14.0-18.0); LYMPHOCYTES PERCENT AUTO 5.2 % (20.5-50.1); MEAN CORPUSCULAR HEMOGLOBIN 35.6 pg (27.0-34.0); MEAN CORPUSCULAR HGB CONC 33.4 g/dL (33.0-35.0); MEAN CORPUSCULAR VOLUME 106.6 fL (80-100); MONOCYTES PERCENT AUTO 8.7 % (2-8); NEUTROPHILS PERCENT AUTO 84.7 % (42.2-75.2); PLATELET COUNT,PLT 166 10^3/uL (150-450); RED BLOOD CELL COUNT 3.17 10^6/uL (4.6-6.2); WHITE BLOOD CELL COUNT,WBC 8.7 10^3/uL (5.0-10.0)
[2023-04-29 10:33] LABS: ALANINE AMINOTRANSFERASE,ALT 22 U/L (16-63); ALBUMIN 3.1 g/dL (3.4-5.0); ALKALINE PHOSPHATASE 93 U/L (46-116); ANION GAP 16.9 mEq/L (7-13); ASPARTATE AMNIOTRANSFERASE,AST 22 U/L (15-37); BILIRUBIN TOTAL 0.2 mg/dL (0.2-1.0); BLOOD UREA NITROGEN,BUN 21 mg/dL (7-18); BUN/CREATININE RATIO 39.6 (No establ ref range); CALCIUM 8.7 mg/dL (8.5-10.1); CARBON DIOXIDE,CO2 26 mmol/L (21-32); CHLORIDE,CL 100 mmol/L (98-107); CREATININE 0.53 mg/dL (0.70-1.30); GLUCOSE RANDOM 88 mg/dL (70-99); LIPASE 57 U/L (73-393); POTASSIUM,K 4.9 mmol/L (3.5-5.1); PROTEIN TOTAL,TP 7.5 g/dL (6.4-8.2); SODIUM,NA 138 mmol/L (136-145)
[2023-04-29 10:34] LABS: ESTIMATED GFR 117 mL/min (>=60); ETHANOL BLOOD MEDICAL < 3 mg/dL (0); LACTIC ACID 1.1 mmol/L (0.4-2.0)
[2023-04-29 10:43] LABS: INR 0.9 (0.9-1.2); PROTHROMBIN TIME 9.7 SEC (9.0-12.0); PTT,PARTIAL THROMBOPLSTIN TIME 25.5 SEC (22.0-34.0)
[2023-04-29] MEDS ORDERED: Sodium Chloride 0.9% 1,000 ML IV SCH (11:15)
[2023-04-29 12:17] LABS: HEMATOCRIT 31.5 % (40.0-54.0); HEMOGLOBIN 10.5 g/dL (14.0-18.0)
== END 2023-04-29 12:38 ==
LOC: DL.ED 09:52
DX: K92.2 Gastrointestinal hemorrhage, unspecified (principal); F17.210 Nicotine dependence, cigarettes, uncomplicated; Z86.73 Personal history of transient ischemic attack (TIA), and cerebral infarction without residual deficits; J44.9 Chronic obstructive pulmonary disease, unspecified; I25.10 Atherosclerotic heart disease of native coronary artery without angina pectoris; E78.00 Pure hypercholesterolemia, unspecified; Z79.82 Long term (current) use of aspirin; Z79.899 Other long term (current) drug therapy; Z88.5 Allergy status to narcotic agent; Z88.8 Allergy status to other drugs, medicaments and biological substances
CPT/HCPCS: 36415; 80053; 80307; 83605; 83690; 84145; 84484; 85014; 85018; 85025; 85610; 85730; 86850; 86900; 86901; 86920; 86922; 93005; 96365; 96366; 96367; 96375; 96376; 99285; C9113; J2354; J2405; J3490; J7030; 93010

== ENCOUNTER 2023-05-20 12:28 | Emergency (ER) | payer OTHER ==
[2023-05-20] MEDS ORDERED: Sodium Chloride 0.9% 10 ML Syringe FLUSH PRN (13:39)
[2023-05-20] MEDS ORDERED: Iopamidol 612 MG/ML 100 ML Bottle IVPUSH ONE (13:42)
[2023-05-20 13:53] LABS: BASOPHILS PERCENT AUTO 0.3 % (0.0-1.0); EOSINOPHILS PERCENT AUTO 0.1 % (1.0-3.0); HEMATOCRIT 33.7 % (40.0-54.0); HEMOGLOBIN 11.3 g/dL (14.0-18.0); LYMPHOCYTES PERCENT AUTO 10.6 % (20.5-50.1); MEAN CORPUSCULAR HEMOGLOBIN 35.6 pg (27.0-34.0); MEAN CORPUSCULAR HGB CONC 33.5 g/dL (33.0-35.0); MEAN CORPUSCULAR VOLUME 106.3 fL (80-100); MONOCYTES PERCENT AUTO 9.7 % (2-8); NEUTROPHILS PERCENT AUTO 79.3 % (42.2-75.2); PLATELET COUNT,PLT 159 10^3/uL (150-450); RED BLOOD CELL COUNT 3.17 10^6/uL (4.6-6.2); WHITE BLOOD CELL COUNT,WBC 6.7 10^3/uL (5.0-10.0)
[2023-05-20 14:13] LABS: ALBUMIN 3.3 g/dL (3.4-5.0); ANION GAP 13.9 mEq/L (7-13); BILIRUBIN TOTAL 0.3 mg/dL (0.2-1.0); BUN/CREATININE RATIO 44.4 (No establ ref range); CALCIUM 8.6 mg/dL (8.5-10.1); CREATININE 0.81 mg/dL (0.70-1.30); EST CRCL DRUG DOSING (CG) 93.47 mL/min; POTASSIUM,K 5.9 mmol/L (3.5-5.1); PROTEIN TOTAL,TP 7.3 g/dL (6.4-8.2)
[2023-05-20 14:19] LABS: A/G RATIO 0.83
[2023-05-20] MEDS ORDERED: Sodium Chloride 0.9% 500 ML IV SCH (14:45)
[2023-05-20 15:10] LABS: APPEARANCE,URINE CLEAR (CLEAR); BILIRUBIN,URINE NEGATIVE (NEGATIVE); COLOR,URINE YELLOW (YELLOW); GLUCOSE,URINE NEGATIVE (NEGATIVE); KETONES,URINE 40 (NEGATIVE); LEUKOCYTE ESTERASE,URINE NEGATIVE (NEGATIVE); NITRITE,URINE NEGATIVE (NEGATIVE); OCCULT BLOOD,URINE NEGATIVE (NEGATIVE); PROTEIN,URINE NEGATIVE (NEGATIVE); UROBILINOGEN,URINE 0.2 mg/dL (0.2-1.0)
[2023-05-20 15:37] VITALS: BP 115/74; PULSE 99
== END 2023-05-20 15:44 | disposition home or self-care (01) ==
LOC: DL.ED 12:28
DX: K52.9 Noninfective gastroenteritis and colitis, unspecified (principal); K29.00 Acute gastritis without bleeding; K91.89 Other postprocedural complications and disorders of digestive system; I10 Essential (primary) hypertension; J44.9 Chronic obstructive pulmonary disease, unspecified; I25.2 Old myocardial infarction; I25.10 Atherosclerotic heart disease of native coronary artery without angina pectoris; E78.00 Pure hypercholesterolemia, unspecified; F17.210 Nicotine dependence, cigarettes, uncomplicated; Z86.73 Personal history of transient ischemic attack (TIA), and cerebral infarction without residual deficits; Z88.8 Allergy status to other drugs, medicaments and biological substances; Z79.82 Long term (current) use of aspirin; Z79.899 Other long term (current) drug therapy
CPT/HCPCS: 36415; 71260; 74177; 80053; 81003; 85025; 96360; 99284; 99285-25; J3490; J7040; Q9967

== ENCOUNTER 2023-10-18 16:25 | Emergency (ER) | payer MEDICARE, OTHER ==
[2023-10-18 16:43] VITALS: BP 134/80; PULSE 108
[2023-10-18] MEDS ORDERED: LORazepam 2 MG/ML SDV IVPUSH ONE (16:54)
[2023-10-18 17:18] LABS: BASOPHILS PERCENT AUTO 1.8 % (0.0-1.0); EOSINOPHILS PERCENT AUTO 1.8 % (1.0-3.0); LYMPHOCYTES PERCENT AUTO 14.9 % (20.5-50.1); MEAN CORPUSCULAR HEMOGLOBIN 36.6 pg (27.0-34.0); MEAN CORPUSCULAR HGB CONC 34.3 g/dL (33.0-35.0); MEAN CORPUSCULAR VOLUME 106.7 fL (80-100); MONOCYTES PERCENT AUTO 13.6 % (2-8); NEUTROPHILS PERCENT AUTO 67.9 % (42.2-75.2); PLATELET COUNT,PLT 144 10^3/uL (150-450); RED BLOOD CELL COUNT 3.28 10^6/uL (4.6-6.2); WHITE BLOOD CELL COUNT,WBC 4.5 10^3/uL (5.0-10.0)
[2023-10-18 17:35] LABS: ALBUMIN 3.3 g/dL (3.4-5.0); ANION GAP 16.7 mEq/L (7-13); BILIRUBIN TOTAL 0.4 mg/dL (0.2-1.0); BUN/CREATININE RATIO 7.4 (No establ ref range); CALCIUM 8.4 mg/dL (8.5-10.1); CREATININE 0.54 mg/dL (0.70-1.30); EST CRCL DRUG DOSING (CG) 166.55 mL/min; POTASSIUM,K 3.7 mmol/L (3.5-5.1); PROTEIN TOTAL,TP 7.1 g/dL (6.4-8.2)
[2023-10-18 17:37] LABS: A/G RATIO 0.87
[2023-10-18] MEDS ORDERED: Iopamidol 755 Mg/ML 100 ML Bottle IVPUSH ONE (17:45)
[2023-10-18] MEDS ORDERED: Lactated Ringers 1,000 ML IV ONE ×2 (18:27→18:28)
[2023-10-18 18:47] LABS: APPEARANCE,URINE CLEAR (CLEAR); BILIRUBIN,URINE NEGATIVE (NEGATIVE); COLOR,URINE YELLOW (YELLOW); GLUCOSE,URINE NEGATIVE (NEGATIVE); KETONES,URINE NEGATIVE (NEGATIVE); LEUKOCYTE ESTERASE,URINE NEGATIVE (NEGATIVE); NITRITE,URINE NEGATIVE (NEGATIVE); OCCULT BLOOD,URINE NEGATIVE (NEGATIVE); PH,URINE 7.5 (5.0-9.0); PROTEIN,URINE NEGATIVE (NEGATIVE); UROBILINOGEN,URINE 0.2 mg/dL (0.2-1.0)
[2023-10-18 18:53] LABS: AMPHETAMINES,URINE NEGATIVE (NEGATIVE); BARBITURATES,URINE NEGATIVE (NEGATIVE); BENZODIAZEPINE,URINE NEGATIVE (NEGATIVE); MDMA (ECSTASY), URINE NEGATIVE (NEGATIVE); METHADONE,URINE NEGATIVE (NEGATIVE); METHAMPHETAMINES,URINE NEGATIVE (NEGATIVE); OPIATES,URINE NEGATIVE (NEGATIVE); OXYCODONE,URINE NEGATIVE (NEGATIVE); PHENCYCLIDINE,URINE NEGATIVE (NEGATIVE); TCA,URINE NEGATIVE (NEGATIVE)
== END 2023-10-18 20:28 | disposition home or self-care (01) ==
LOC: DL.ED 16:25
DX: E86.0 Dehydration (principal); I65.22 Occlusion and stenosis of left carotid artery; E78.00 Pure hypercholesterolemia, unspecified; F10.239 Alcohol dependence with withdrawal, unspecified; I25.10 Atherosclerotic heart disease of native coronary artery without angina pectoris; J44.9 Chronic obstructive pulmonary disease, unspecified; Z88.8 Allergy status to other drugs, medicaments and biological substances; Z79.82 Long term (current) use of aspirin; Z79.899 Other long term (current) drug therapy; Z95.5 Presence of coronary angioplasty implant and graft
CPT/HCPCS: 36415; 70450; 70496; 70498; 80053; 80305; 80307; 81003; 82140; 83690; 84484; 85025; 93005; 96365; 96366; 96375; 99284; J2060; J7120; Q9967; 93010

== ENCOUNTER 2024-12-20 08:00 | Emergency (ER) | payer OTHER ==
[2024-12-20 08:49] LABS: EOSINOPHILS PERCENT AUTO 1.4 % (1.0-3.0); HEMATOCRIT 34.7 % (40.0-54.0); HEMOGLOBIN 10.7 g/dL (14.0-18.0); LYMPHOCYTES PERCENT AUTO 8.6 % (20.5-50.1); MEAN CORPUSCULAR HEMOGLOBIN 34.9 pg (27.0-34.0); MEAN CORPUSCULAR HGB CONC 30.8 g/dL (33.0-35.0); MONOCYTES PERCENT AUTO 7.1 % (2-8); NEUTROPHILS PERCENT AUTO 81.9 % (42.2-75.2); PLATELET COUNT,PLT 161 10^3/uL (150-450); RED BLOOD CELL COUNT 3.07 10^6/uL (4.6-6.2); WHITE BLOOD CELL COUNT,WBC 5.1 10^3/uL (5.0-10.0)
[2024-12-20 09:05] LABS: INR 0.9 (0.9-1.2); PROTHROMBIN TIME 9.3 SEC (9.0-12.0)
[2024-12-20 09:11] LABS: A/G RATIO 0.67; ALBUMIN 2.9 g/dL (3.4-5.0); ANION GAP 8.3 mEq/L (7-13); BILIRUBIN TOTAL 0.2 mg/dL (0.2-1.0); BUN/CREATININE RATIO 6.1 (No establ ref range); CALCIUM 8.6 mg/dL (8.5-10.1); CREATININE 0.66 mg/dL (0.70-1.30); EST CRCL DRUG DOSING (CG) 103.32 mL/min; POTASSIUM,K 3.3 mmol/L (3.5-5.1); PROTEIN TOTAL,TP 7.2 g/dL (6.4-8.2)
[2024-12-20] MEDS: Bacitracin Oint 1 GM U/D Packet TOP ONE (09:38)
[2024-12-20] MEDS: Lidocaine 5% 700 MG Patch TOP ONE (09:48)
[2024-12-20 09:55] VITALS: BP 92/62; PULSE 105
== END 2024-12-20 10:04 | disposition home or self-care (01) ==
LOC: DL.ED 08:00
DX: S42.031A Displaced fracture of lateral end of right clavicle, initial encounter for closed fracture (principal); S01.81XA Laceration without foreign body of other part of head, initial encounter; I25.10 Atherosclerotic heart disease of native coronary artery without angina pectoris; E78.00 Pure hypercholesterolemia, unspecified; I25.2 Old myocardial infarction; I10 Essential (primary) hypertension; Z91.041 Radiographic dye allergy status; Z88.8 Allergy status to other drugs, medicaments and biological substances; Z79.51 Long term (current) use of inhaled steroids; Z79.899 Other long term (current) drug therapy; Z79.82 Long term (current) use of aspirin; Z79.02 Long term (current) use of antithrombotics/antiplatelets; Z86.73 Personal history of transient ischemic attack (TIA), and cerebral infarction without residual deficits; W18.39XA Other fall on same level, initial encounter; Y93.89 Activity, other specified
CPT/HCPCS: 36415; 70450; 71045; 72125; 73110; 80053; 80307; 85025; 85610; 99284; A9270; 99283